=== PATIENT | female | born 1935 | race Caucasian/White ===

== ENCOUNTER → 2016-09-06 | Outpatient (CLI) | payer MEDICARE, MEDICAID ==
[2016-09-06 10:41] LABS: PROTHROMBIN TIME 33.9 SEC (11.4-15.4)
== END ==
LOC: OD 09:37
PROVIDERS: ATTEND Family Medicine
DX: I48.91 Unspecified atrial fibrillation (principal)
CPT/HCPCS: 36415; 85610

== ENCOUNTER → 2016-10-04 | Outpatient (CLI) | payer MEDICARE, MEDICAID ==
[2016-10-04 10:51] LABS: PROTHROMBIN TIME 37.9 SEC (11.4-15.4)
== END ==
LOC: OD 09:16
PROVIDERS: ATTEND Family Medicine
DX: I48.91 Unspecified atrial fibrillation (principal)
CPT/HCPCS: 36415; 85610

== ENCOUNTER → 2016-10-11 | Outpatient (CLI) | payer MEDICARE, MEDICAID | LOC: OD 09:18 | PROVIDERS: ATTEND Family Medicine | DX: I48.91 Unspecified atrial fibrillation (principal) | CPT/HCPCS: 36415; 85610 ==

== ENCOUNTER → 2016-10-31 | Outpatient (CLI) | payer MEDICARE, MEDICAID | LOC: OD 09:48 | PROVIDERS: ATTEND Family Medicine | DX: I48.91 Unspecified atrial fibrillation (principal) | CPT/HCPCS: 36415; 85610 ==

== ENCOUNTER → 2016-11-04 | Outpatient (CLI) | payer MEDICARE, MEDICAID ==
[2016-11-04 11:27] LABS: PROTHROMBIN TIME 15.4 SEC (11.4-15.4)
== END ==
LOC: OD 09:59
PROVIDERS: ATTEND Family Medicine
DX: I48.91 Unspecified atrial fibrillation (principal)
CPT/HCPCS: 36415; 85610

== ENCOUNTER → 2016-11-07 | Outpatient (CLI) | payer MEDICARE, MEDICAID | LOC: OD 09:42 | PROVIDERS: ATTEND Family Medicine | DX: I48.91 Unspecified atrial fibrillation (principal) | CPT/HCPCS: 36415; 85610 ==

== ENCOUNTER → 2016-11-09 | Outpatient (CLI) | payer MEDICARE, MEDICAID ==
[2016-11-09 11:00] LABS: PROTHROMBIN TIME 15.7 SEC (11.4-15.4)
== END ==
LOC: OD 09:31
PROVIDERS: ATTEND Family Medicine
DX: I48.91 Unspecified atrial fibrillation (principal)
CPT/HCPCS: 36415; 85610

== ENCOUNTER → 2016-11-11 | Outpatient (CLI) | payer MEDICARE, MEDICAID ==
[2016-11-11 11:26] LABS: PROTHROMBIN TIME 14.8 SEC (11.4-15.4)
== END ==
LOC: OD 10:23
PROVIDERS: ATTEND Family Medicine
DX: I48.91 Unspecified atrial fibrillation (principal)
CPT/HCPCS: 36415; 85610

== ENCOUNTER 2017-10-22 10:55 | Emergency (ER) | payer MEDICARE, MEDICAID ==
[2017-10-22] MEDS ORDERED: NORMAL SALINE 1000 ML 1,000 ML IV ONE (11:03)
[2017-10-22 11:23] LABS: VENOUS BLOOD BASE EXCESS 2.7 mmol/L; VENOUS BLOOD HCO3 34.8 mmol/L (20-32)
[2017-10-22 11:25] LABS: VENOUS BLOOD PH 7.14 (7.30-7.42)
[2017-10-22 11:31] LABS: ABSOLUTE LYMPHOCYTES (AUTO) 2.9 10^3/uL (0.5-4.7); ABSOLUTE NEUT (AUTO) 8.3 10^3/uL (1.7-8.2); BASOPHILS % (AUTO) 0.3 % (0-2); EOSINOPHILS % (AUTO) 0.3 % (0-6); HEMATOCRIT 39.5 % (36.0-47.0); HEMOGLOBIN 12.6 g/dL (12.0-15.5); LYMPHOCYTES % (AUTO) 23.9 % (13-45); MEAN CORPUSCULAR HEMOGLOBIN 30.7 pg (27.0-33.4); MEAN CORPUSCULAR HGB CONC 31.8 g/dL (32.0-36.0); MEAN CORPUSCULAR VOLUME 97 fl (80-97); MONOCYTES % (AUTO) 8.4 % (3-13); PLATELET COUNT 184 10^3/uL (150-450); RED BLOOD COUNT 4.09 10^6/uL (3.72-5.28); RED CELL DISTRIBUTION WIDTH 16.7 % (11.5-14.0); SEGMENTED NEUTROPHILS % (AUTO) 67.1 % (42-78); TOTAL CELLS COUNTED % (AUTO) 100 %; WHITE BLOOD COUNT 12.3 10^3/uL (4.0-10.5)
[2017-10-22 11:32] LABS: INTERNATIONAL RATION (INR) 1.69; PARTIAL THROMBOPLASTIN TIME 29.7 SEC (23.5-35.8); PROTHROMBIN TIME 20.9 SEC (11.4-15.4)
[2017-10-22 11:42] LABS: ALANINE AMINOTRANSFERASE 43 U/L (9-52); ALBUMIN 3.1 g/dL (3.5-5.0); ALKALINE PHOSPHATASE 73 U/L (38-126); ANION GAP 13 (5-19); ASPARTATE AMINO TRANSFERASE 53 U/L (14-36); BILIRUBIN,DIRECT 0.4 mg/dL (0.0-0.4); BILIRUBIN,TOTAL 0.5 mg/dL (0.2-1.3); BLOOD UREA NITROGEN 32 mg/dL (7-20); CALCIUM 7.9 mg/dL (8.4-10.2); CARBON DIOXIDE 36 mmol/L (22-30); CHLORIDE 90 mmol/L (98-107); GLUCOSE 167 mg/dL (75-110); POTASSIUM 4.5 mmol/L (3.6-5.0); SODIUM 138.9 mmol/L (137-145); TOTAL PROTEIN 6.1 g/dL (6.3-8.2)
--- NOTE | 2017-10-22 12:03 | RADIOLOGY REPORT (SQ) ---
EXAM DESCRIPTION: CHEST SINGLE VIEW COMPLETED DATE/TIME: 10/22/2017 11:28 am REASON FOR STUDY: s/p cardiac arrest COMPARISON: 10/13/2014. EXAM PARAMETERS: NUMBER OF VIEWS: One view. TECHNIQUE: Single frontal radiographic view of the chest acquired. RADIATION DOSE: NA LIMITATIONS: None. FINDINGS: LUNGS AND PLEURA: Bilateral pleural effusions. Left lateral pneumothorax, probably 10%. MEDIASTINUM AND HILAR STRUCTURES: No masses. Contour normal. HEART AND VASCULAR STRUCTURES: Heart normal in size. Normal vasculature. BONES: No acute findings. HARDWARE: Endotracheal tube with the tip located 4 cm proximal to the keyon. Nasogastric tube with the tip in the stomach. Surgical clips. OTHER: No other significant finding. IMPRESSION: LIFE LINES DESCRIBED. BILATERAL PLEURAL EFFUSIONS. 10% LEFT LATERAL PNEUMOTHORAX. COMMENT: Pertinent findings on the imaging study reported as a CRITICAL RESULT to ER PROVIDER at11: 56 on 10/22/2017. Category of Critical Result: Pneumothorax. TECHNICAL DOCUMENTATION: JOB ID: [id number] [employer]- All Rights Reserved Reading location - IP/workstation name: [email or web address]
--- NOTE | 2017-10-22 12:03 | RADIOLOGY REPORT (SQ) ---
EXAM DESCRIPTION: KUB/ABDOMEN (SINGLE VIEW) COMPLETED DATE/TIME: 10/22/2017 11:28 am REASON FOR STUDY: NG TUBE PLACEMENT COMPARISON: None. NUMBER OF VIEWS: One view. TECHNIQUE: Supine radiographic image of the upper abdomen acquired. LIMITATIONS: Lower abdomen not included. FINDINGS: BOWEL GAS PATTERN: Normal bowel gas pattern. No dilated loops. CALCIFICATIONS: No suspicious calcifications. SOFT TISSUES: No gross mass or suggestion of organomegaly. HARDWARE: Nasogastric tube with the tip in stomach. BONES: No acute fracture. No worrisome bone lesions. OTHER: No other significant finding. IMPRESSION: NASOGASTRIC TUBE WITH THE TIP IN THE STOMACH. TECHNICAL DOCUMENTATION: JOB ID: [id number] [employer]- All Rights Reserved Reading location - IP/workstation name: [email or web address]
[2017-10-22 12:36] VITALS: BP 128/63
[2017-10-22 12:36] LABS: AMORPHOUS SEDIMENT,URINE TRACE /HPF; APPEARANCE,URINE SLIGHTLY-CLOUDY; BILIRUBIN,URINE NEGATIVE (NEGATIVE); COLOR,URINE YELLOW; GLUCOSE, URINE NEGATIVE (NEGATIVE); KETONES,URINE NEGATIVE (NEGATIVE); LEUKOCYTE ESTERASE,URINE NEGATIVE (NEGATIVE); NITRITE,URINE NEGATIVE (NEGATIVE); PROTEIN,URINE 100 mg/dL (NEGATIVE); URINE SPECIFIC GRAVITY 1.013; UROBILINOGEN,URINE NEGATIVE mg/dL (<2.0)
--- NOTE | 2017-10-22 12:57 | RADIOLOGY REPORT (SQ) ---
EXAM DESCRIPTION: CHEST SINGLE VIEW COMPLETED DATE/TIME: 10/22/2017 12:47 pm REASON FOR STUDY: TUBE PLACEMENT COMPARISON: 10/22/2017. EXAM PARAMETERS: NUMBER OF VIEWS: One view. TECHNIQUE: Single frontal radiographic view of the chest acquired. RADIATION DOSE: NA LIMITATIONS: None. FINDINGS: LUNGS AND PLEURA: Diffuse parenchymal airspace disease throughout both lungs as well as bi lateral pleural effusions. Left side pneumothorax has decreased following tube placement. MEDIASTINUM AND HILAR STRUCTURES: No masses. Contour normal. HEART AND VASCULAR STRUCTURES: Heart normal in size. Normal vasculature. BONES: No acute findings. HARDWARE: Left side chest tube. Endotracheal tube and nasogastric tube unchanged. Surgical clips. OTHER: No other significant finding. IMPRESSION: 1. INTERVAL LEFT-SIDED CHEST TUBE PLACEMENT WITH DECREASE IN THE LEFT PNEUMOTHORAX. 2. STABLE LIFE LINES. 3. DIFFUSE AIRSPACE DISEASE AND BILATERAL PLEURAL EFFUSIONS. TECHNICAL DOCUMENTATION: JOB ID: [id number] [employer]- All Rights Reserved Reading location - IP/workstation name: [email or web address]
--- NOTE | 2017-10-22 15:40 | ER Document Report ---
ED General - General Chief Complaint: Respiratory Arrest Stated Complaint: POST CARDIAC ARREST Time Seen by Provider: 10/22/17 11:02 TRAVEL OUTSIDE OF THE [place] IN LAST 30 DAYS: No - HPI Patient complains to provider of: Cardiac arrest and respiratory arrest Notes: Patient coming in via EMS intubated after a cardiac arrest respiratory arrest. According to EMS son who is with the patient states that she has been complaining of shortness of breath for a few days came out of the bedroom stating that she felt tired and a few minutes later her son found the patient unresponsive with foam at the mouth in the bedroom. Upon EMS arrival states no pulses felt monitor showed asystole therefore ACLS was started with compressions and 3 epinephrines given total time for return of spontaneous circulation was approximately 60 minutes. Patient was intubated during this time to as well. On arrival patient was slightly tachycardic with good blood pressure and good SPO2. Otherwise due to patient's HPI is limited - Related Data Allergies/Adverse Reactions: codeine [Codeine] Allergy (Verified 10/03/14 11:37) latex [Latex] Allergy (Verified 10/03/14 11:37) Past Medical History - Social History Smoking Status: Current Some Day Smoker Chew tobacco use (# tins/day): No Frequency of alcohol use: None Drug Abuse: None Family History: Reviewed & Not Pertinent Patient has suicidal ideation: No Patient has homicidal ideation: No - Past Medical History Cardiac Medical History: Reports: Hx Atrial Fibrillation, Hx Congestive Heart Failure, Hx Hypercholesterolemia, Hx Hypertension Pulmonary Medical History: Reports: Hx Bronchitis, Hx COPD Denies: Hx Tuberculosis Endocrine Medical History: Reports: Hx Hypothyroidism Renal/ Medical History: Denies: Hx Peritoneal Dialysis Skin Medical History: Denies Hx Cellulitis, Reports Hx Psoriasis Psychiatric Medical History: Reports: Hx Depression Past Surgical History: Reports: Hx Gynecologic Surgery - D&C., Hx Thyroid Surgery - thyroidectomy.. Denies: Hx Pacemaker - Immunizations Hx Diphtheria, Pertussis, Tetanus Vaccination: Yes - 2008 Hx Pneumococcal Vaccination: 08/14/08 Review of Systems - Review of Systems -: Yes ROS unobtainable due to patient's medical condition - Severe condition Physical Exam - Vital signs Vitals: BP 138/76 H 10/22/17 10:55 Interpretation: Tachycardic - General General appearance: Unresponsive In distress: Mild - HEENT Head: Normocephalic, Atraumatic Eyes: Normal Conjunctiva: Normal Cornea: Normal Pupils: Fixed Pharynx: Other - ET tube Neck: Normal - Respiratory Respiratory status: Respiratory distress Chest status: Nontender Breath sounds: Rhonchi Chest palpation: Normal - Cardiovascular Rhythm: Regular, Tachycardia Heart sounds: Normal auscultation Murmur: No - Abdominal Inspection: Normal Distension: No distension Bowel sounds: Normal Organomegaly: No organomegaly - Extremities General upper extremity: Normal inspection, Normal color General lower extremity: Normal inspection, Normal color - Neurological Sensory: Normal Notes: Patient was making purposeful movement pulling away from painful stimuli when IVs will be placed. Pupils were small and fixed. Patient was also biting on the ET tube. - Skin Skin Temperature: Cool Skin Moisture: Dry Skin Color: Normal Course - Re-evaluation Re-evalutation: 10/22/17 15:40 Patient coming in status post cardiac arrest. Patient's temperature was found to be 92 passive hypothermia was continued. Patient chest x-ray confirmed placement of ET tube however does show small 10% pneumothorax. Patient did have a chest tube placement that she was going to be airlifted from our facility to tertiary care facility. Laboratory studies were consistent with her cardiac arrest and respiratory arrest acidosis with hypercapnia. EKG did not show signs of overt STEMI along with no elevation in her troponin. Patient remained stable until transportation arrived. Did discuss with Dr. Gonzalez who agrees her current measures and accepted the patient. - Vital Signs Vital signs: Temp Pulse Resp BP Pulse Ox 94.7 F L 14 128/63 H 94 10/22/17 12:31 10/22/17 12:31 10/22/17 12:31 10/22/17 12:20 - Laboratory Result Diagrams: 10/22/17 11:03 10/22/17 11:03 Laboratory results interpreted by me: 10/22/17 10/22/17 10/22/17 11:03 11:03 11:03 WBC 12.3 H MCHC 31.8 L RDW 16.7 H Absolute Neutrophils 8.3 H PT 20.9 H VBG pH VBG pCO2 VBG HCO3 Chloride 90 L Carbon Dioxide 36 H BUN 32 H Glucose 167 H Lactic Acid Calcium 7.9 L AST 53 H Total Protein 6.1 L Albumin 3.1 L Urine Protein 10/22/17 10/22/17 10/22/17 11:03 11:03 11:20 WBC MCHC RDW Absolute Neutrophils PT VBG pH 7.14 L* VBG pCO2 104.0 H* VBG HCO3 34.8 H Chloride Carbon Dioxide BUN Glucose Lactic Acid 8.1 H Calcium AST Total Protein Albumin Urine Protein 100 H Procedures - Chest Tube Left Consent obtained: Yes - Verbal by family Chest tube pre-insertion: Sterile PPE donned, Chloraprep applied, Sterile drapes applied Size of [place] Tube (cm): 8 Anesthetic type: 1% Lidocaine mL's of anesthetic: 2 Chest tube post-insertion: Sutured, Position confirmed w/ CXR, Water seal, Low intermittent suction Chest tube drainage: Serosanguineous fluid with air pulled out of the syringe Number of attempts: 1 Complications: No Critical Care Note - Critical Care Note Total time excluding time spent on procedures (mins): 45 Comments: Time spent multiple evaluations for patient status post cardiac arrest Discharge - Discharge Clinical Impression: Status post cardiac arrest, Respiratory arrest Condition: Critical Disposition: [facility] Referrals: MARTA CROWLEY MD [Primary Care Provider] - Follow up as needed
--- NOTE | 2017-10-22 21:37 | EKG REPORT ---
SEVERITY:- ABNORMAL ECG - ATRIAL FIBRILLATION PREMATURE COMPLEXES, VENTRICULAR PROBABLE LVH WITH SECONDARY REPOL ABNRM : Confirmed by: Leland Pierre 22-Oct-2017 21:36:46
== END 2017-10-22 12:55 | disposition short-term general hospital (02) ==
LOC: ER 10:55
PROC: 0W9B30Z Drainage of Left Pleural Cavity with Drainage Device, Percutaneous Approach (ICD-10-PCS; principal; 2017-10-22)
DX: I46.9 Cardiac arrest, cause unspecified (principal); R06.02 Shortness of breath; F17.200 Nicotine dependence, unspecified, uncomplicated
CPT/HCPCS: 36415; 51702; 71045; 74018; 80053; 81001; 82803; 82962; 83605; 84484; 85025; 85610; 85730; 87086; 93005; 93010; 99291; C1751